=== PATIENT | male | born 1985 | race African-American/Black ===

== ENCOUNTER 2017-01-04 01:10 | Emergency (ER) | payer SELFPAY ==
[~2017-01-04] VITALS: Ht 185.4 cm; Wt 93.0 kg
[2017-01-04 01:55] LABS: Basophils # (auto) 0.1 uL; Basophils % (auto) 0.5 % (0.0-2.0); Eosinophils # (auto) 0 uL; Eosinophils % (auto) 0.1 % (0.0-7.0); Hemoglobin 16.2 g/dL (13.5-17.5); Lymphocytes # (auto) 1.7 uL; Lymphocytes % (auto) 10.6 % (10.0-50.0); Mean Corpuscular Hemoglobin 29.7 pg (28.0-32.0); Mean Corpuscular Hgb Conc. 33.9 g/dL (32.0-36.0); Mean Corpuscular Volume 87.8 fL (80.0-100.0); Mean Platelet Volume 8.5 fL (6.9-10.8); Monocytes # (auto) 1.4 uL; Monocytes % (auto) 8.9 % (0.0-12.0); Neutrophils # (auto) 12.6 uL; Neutrophils % (auto) 79.9 % (37.0-80.0); Nucleated Red Blood Cells % 0.1 %; Platelet Count (auto) 259 10^3/uL (140-450); Red Cell Distribution Width 14.7 % (11.8-14.3); White Blood Cell 15.7 10^3/uL (4.4-10.8)
[2017-01-04 02:19] LABS: Albumin 4.5 g/dL (3.4-5.0); BUN/Creatinine Ratio 9.9; Calcium 9.4 mg/dL (8.5-10.1); Potassium 3.7 mmol/L (3.5-5.1)
[2017-01-04 02:22] LABS: Bilirubin, Total 0.9 mg/dL (0.2-1.0); Total Protein 8.9 g/dL (6.4-8.2)
[2017-01-04 02:52] LABS: Urine Bilirubin Negative (Negative); Urine Blood Negative /uL (Negative); Urine Color Yellow (Yellow); Urine Glucose Normal (Normal); Urine Hyaline Cast FEW /lpf (0 - 2); Urine Ketone TRACE (Negative); Urine Mucus FEW (None Seen); Urine Nitrite Negative (Negative); Urine RBC 1 /hpf (0 - 3); Urine Squamous Epithelial Cell FEW /hpf (<5); Urine Urobilinogen Normal (Negative); Urine pH 5.5 (5.0-8.0)
[2017-01-04] MEDS ORDERED: cefTRIAXone SOD 1,000 MG VL IM ONE (05:00)
[2017-01-04] MEDS ORDERED: IBUPROFEN 600 MG TAB PO ONE (05:00)
[2017-01-04 06:01] VITALS: BP 141/93
== END 2017-01-04 06:07 | disposition home or self-care (01) ==
LOC: ER 01:13
DX: N48.22 Cellulitis of corpus cavernosum and penis (principal); N39.0 Urinary tract infection, site not specified; D72.829 Elevated white blood cell count, unspecified
CPT/HCPCS: 36415; 80053; 80307; 81001; 85025; 93005; 96372; 99285; J0696